=== PATIENT | female | born 1990 | race Caucasian/White ===

== ENCOUNTER 2022-06-24 15:44 | Outpatient (CLI) | payer BC, SELFPAY ==
[2022-06-24 13:50] LABS: Albumin* 4.5 g/dL (3.3-5.0)
[2022-06-24 13:51] LABS: Chloride* 106 mmol/L (96-114); Potassium* 4.5 mmol/L (3.6-5.1); Sodium* 140 mmol/L (135-149)
[2022-06-24 13:53] LABS: Aspartate Amino Transferase* 21 U/L (12-35); Bilirubin Total* 0.6 mg/dL (0.1-1.5); Carbon Dioxide* 26 mmol/L (20-32); Cholesterol* 191 mg/dL (90-199); Creatinine* 0.5 mg/dL (0.5-1.5); Estimated Glomerular Filt Rate 126 ml/min; Total Protein* 7.7 g/dL (6.0-8.3)
[2022-06-24 13:54] LABS: Alanine Aminotransferase* 24 U/L (4-35); Alkaline Phosphatase* 59 U/L (40-150); Blood Urea Nitrogen* 13 mg/dL (5-24); Calcium* 9.2 mg/dL (8.4-10.6); Glucose* 93 mg/dL (60-115); HDL Cholesterol* 59 mg/dL (>=50); LDL Cholesterol Calculated 108 mg/dL (<100); Triglycerides* 118 mg/dL (40-149)
[2022-06-24 14:11] LABS: Vitamin D 25 Hydroxy* 29 ng/mL (30-80)
[2022-06-24 14:25] LABS: TSH With Reflex to FT4* 0.354 uIU/mL (0.270-4.200)
== END 2022-06-24 15:45 | disposition home or self-care (01) ==
PROVIDERS: PCP Physician Assistant; Visit Provider Nurse Practitioner Family
DX: Z79.899 Other long term (current) drug therapy (principal)
CPT/HCPCS: 80053; 80061; 82306; 84443

== ENCOUNTER 2023-01-17 20:39 | Day surgery (SDC) | payer BC, SELFPAY ==
[2023-01-17] VITALS (11 sets, daily range): BP systolic 119–145; BP diastolic 45–84; PULSE 56–77; RESP 16; TEMP 36.7–36.9; O2SAT 95–98; BMI 34.0
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
--- NOTE | 2023-01-17 21:11 | CRLHL7_ITS ---
For Patients: As a result of the Century Cures Act, medical imaging exams and procedure reports are released immediately into your electronic medical record. You may view this report before your referring provider. If you have questions, please contact your health care provider. INDICATION: Right upper quadrant abdomen pain. TECHNIQUE: Ultrasound abdomen limited. Sonographic images of the right upper quadrant were obtained using arroyo-scale and color Doppler images. COMPARISON: None. FINDINGS: Liver: Normal in size. Mild diffuse hepatic steatosis. No suspicious masses. No intrahepatic biliary dilatation. Portal vein is patent with blood flow toward the liver. Gallbladder: Dependent shadowing cholelithiasis with a non-mobile stone in the gallbladder neck. Normal wall thickness. No pericholecystic fluid. No sonographic Kim`s sign, however the patient was given analgesic pain medication prior to the examination. Common bile duct: 4 mm. Pancreas: Unremarkable. Right kidney: Normal in size. Normal echotexture and cortex. No suspicious masses, stones, or hydronephrosis. Vasculature: Proximal abdominal aorta and IVC are unremarkable. IMPRESSION: Cholelithiasis without other sonographic evidence of acute cholecystitis. Dictated by Akash Trimble MD @ 01/17/2023 11:03:45 PM (Electronically Signed)
[2023-01-17 21:27] LABS: Basophils Absolute Auto 0.03 K/uL (0.00-0.30); Basophils Percent Auto 0.4 % (0.0-3.0); Eosinophils Percent Auto 2.8 % (0.0-7.0); Hemoglobin* 12.2 gm/dL (12.0-16.0); Immature Granulocytes Abs Auto 0.01 K/uL (0.00-0.30); Immature Granulocytes Pct Auto 0.1 %; Lymphocytes Absolute Auto 2.04 K/uL (0.90-2.90); Lymphocytes Percent Auto 28.1 % (20-44); Mean Corpuscular HGB Conc 33 gm/dL (32-36); Mean Corpuscular Hemoglobin 29 pg (26-34); Mean Corpuscular Volume 89 fL (80-100); Monocytes Percent Auto 4.5 % (0.0-11.0); Neutrophils Absolute Auto 4.65 K/uL (1.7-7.0); Neutrophils Percent Auto 64.1 % (42.0-72.0); Platelet Count* 220 K/uL (140-440); RDW Coefficient of Variation % 13.1 % (11.5-15.5); Red Blood Count 4.18 m/uL (4.00-5.20); White Blood Count* 7.26 K/uL (4.50-11.00)
[2023-01-17 21:28] LABS: Slide Review Reflex No
[2023-01-17] MEDS: MORPHINE 4 MG/ML INJ IVP (21:28)
[2023-01-17] MEDS: 0.9 % SODIUM CHLORIDE 1000 ml 1,000 ML IV (21:28)
[2023-01-17] MEDS: KETOROLAC 30 MG/ML inj IVP (21:28)
[2023-01-17 21:33] LABS: Appearance Urine Clear (Clear); Bilirubin Urine Negative (Negative); Blood Urine Trace-intact (Negative); Color Urine Yellow (Yellow); Glucose Urine Negative (Negative); Ketones Urine Negative (Negative); Leukocyte Esterase Urine Negative (Negative); Nitrite Urine Negative (Negative); Protein Urine Negative (Negative); Urobilinogen Urine 0.2 (0.2-1.0); pH Urine 5.5 (5.0-8.5)
[2023-01-17 21:41] LABS: RBC Urine 0-2 (0-2); WBC Urine 0-2 (0-5)
[2023-01-17 21:42] LABS: Albumin* 4.6 g/dL (3.3-5.0); Chloride* 105 mmol/L (96-114)
[2023-01-17 21:43] LABS: Potassium* 3.7 mmol/L (3.6-5.1); Sodium* 140 mmol/L (135-149)
[2023-01-17 21:45] LABS: Creatinine* 0.5 mg/dL (0.5-1.5); Estimated Glomerular Filt Rate 125 ml/min
[2023-01-17 21:46] LABS: Alanine Aminotransferase* 27 U/L (4-35); Alkaline Phosphatase* 60 U/L (40-150); Anion Gap 10 mEq/L (7-15); Aspartate Amino Transferase* 26 U/L (12-35); Bilirubin Direct* 0.1 mg/dL (0.0-0.5); Bilirubin Total* 0.3 mg/dL (0.1-1.5); Blood Urea Nitrogen* 9 mg/dL (5-24); Calcium* 9.7 mg/dL (8.4-10.6); Carbon Dioxide* 25 mmol/L (20-32); Glucose* 85 mg/dL (60-115); Lipase* 122 U/L (23-300)
[2023-01-17 21:48] LABS: C Reactive Protein* 0.6 mg/dL (0.5-1.0)
[2023-01-17 21:55] LABS: HCG Qualitative Serum* Negative (Negative)
[2023-01-17 22:13] LABS: Total Protein* 7.6 g/dL (6.0-8.3)
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
[2023-01-18] VITALS (23 sets, daily range): BP systolic 114–142; BP diastolic 67–91; PULSE 54–88; RESP 16–22; TEMP 36.1–37; O2SAT 90–99; BMI 36.3
--- NOTE | 2023-01-18 00:03 | ED.NURSE ---
report given to med/tree surgeon helper. pt. transferred via wheelchair to room 262.
[2023-01-18] MEDS: 0.9 % SODIUM CHLORIDE 1000 ml 1,000 ML 125 ML IV ×2 (01:39→08:36)
[2023-01-18] MEDS: SODIUM CHLORIDE 0.9 % (FLUSH) 10 ML SYRINGE 5 ML IVF (01:42)
--- NOTE | 2023-01-18 05:11 | PC.NURSE ---
Shift note: Pt was alert and oriented at the time of admission. Brought in on a wheelchair with complaints of abdominal pain, nausea and diarrhea which started 3 days ago. The above symptoms subsidized before pt was sent from ED. No nausea, diarrhea and pain level was at zero on admission and remained so throughout the shift. However, pt confirmed mild abd tenderness in all 4 quadrants except left upper quadrant. Pt was reviewed through telehealth by Dr. Jordan. NPO status maintained for possible surgery today. Except heart rate which was 54, all other vital signs were stable. Pt has had adequate and uninterrupted sleep except when there was the need for assessment.
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
[2023-01-18] MEDS: ACETAMINOPHEN 325 MG TABLET PO (07:19)
[2023-01-18] MEDS: MORPHINE 4 MG/ML INJ IVP (10:25)
[2023-01-18] MEDS: BUPIVACAINE 0.25% 30 ML INJECTION (14:45)
[2023-01-18] MEDS: LACTATED RINGERS 1000 ML 1,000 ML 35 ML IV (14:58)
--- NOTE | 2023-01-18 15:03 | W.ANESCHARGE ---
Anesthesia Charges Start Date/Time Anesthesia Start Date: 01/18/23 Anesthesia Start Time: 13:48 Stop Date/Time Anesthesia Stop Date: 01/18/23 Anesthesia Stop Time: 15:04
--- NOTE | 2023-01-18 15:06 | W.ANESCHARGE ---
Anesthesia Charges Start Date/Time Anesthesia Start Date: 01/18/23 Anesthesia Start Time: 13:48 Stop Date/Time Anesthesia Stop Date: 01/18/23 Anesthesia Stop Time: 15:04
--- NOTE | 2023-01-18 15:08 | PM.GSPRC ---
Operative Note Pre-op diagnosis: Cholelithiasis with likely acute cholecystitis Post-op diagnosis: Same Type of Procedure: Laparoscopic cholecystectomy Indications: The patient is a 33-year-old female with a history of several weeks of nausea. Yesterday she developed worsening nausea and severe right upper quadrant pain. She came in to be seen and was found to have gallstones. Liver tests as well as white blood cell count were normal, however because of the persistent pain it was felt she would benefit from cholecystectomy. Procedure Description: After discussing the risks and benefits of the procedure, the patient signed informed consent.? The operative site was marked and the patient was brought to the operating room and placed on the operating table in supine position.? Care was taken to pad the patient's pressure points.?? The patient was then intubated by anesthesia.?? The operative site was then prepped and draped in the usual sterile fashion.? A time-out was then performed. Entrance to the abdomen was gained via a 5 mm Visiport in the left upper quadrant. The abdomen was insufflated and briefly surveyed for signs of injury. There was none. A 10 mm umbilical port was placed. There were adhesions from the omentum to the falciform ligament. These were filmy in nature, however they were divided sharply with a scissor to facilitate the procedure. Two working ports were then placed along the right costal margin, all under direct vision. The patient was then placed in reverse Trendelenburg position with the right side up. The gallbladder fundus was grasped and retracted cephalad. It was noted to be distended. The infundibulum was grasped. A combination of hook cautery and blunt dissection was used to carefully dissect out the cystic duct and artery until they could clearly be seen entering the gallbladder without any intervening structures. The gallbladder was dissected off the cystic plate to achieve the critical view. Once this was achieved the cystic duct and artery were each clipped with 2 clips proximally and 1 clip distally and transected with the scissors. The gallbladder was then taken off of the liver bed and removed from the abdomen using an Endo-Catch bag. The gallbladder bed was surveyed for hemostasis which appeared adequate. The remaining ports were then removed and the abdomen desufflated. The umbilical port fascia was closed with 0 Vicryl. The skin was closed with absorbable subcuticular suture. Instrument sponge and needle counts were correct at the end of the case. The patient was then woken and transferred to the PACU in stable condition. The patient was then woken and transported to the recovery area in stable condition. ? The patient tolerated the procedure well. Findings: Distended gallbladder. Anesthesia: GETA Surgeon: Mily Sands MD Estimated blood loss (mL): 5 Specimen: Gallbladder Condition: stable Disposition: PACU Date of procedure: 01/18/23
[2023-01-18] MEDS: HYDROmorphone 0.5 mg/0.5 ml inj IVP (15:22)
[2023-01-18] MEDS: fentaNYL 100 MCG/2 ML inj 50 MCG IVP (15:35)
--- NOTE | 2023-01-18 15:47 | SUR.PHASEI ---
into pacu with 800cc lr. infused 90cc lr in phase 1
[2023-01-18] MEDS: HYDROCODONE-ACETAMIN 5-325 MG 1 TAB PO (17:07)
--- NOTE | 2023-01-18 18:39 | PC.NURSE ---
Pt alert and oriented. Pt independent in room. Pt has had pain ranging from 0-7; see EMAR for intervention. Pt went to surgery at 1345; Pt returned to floor at 16. VSS. Pt up to bathroom.When sleeping Pt?s saturations would drop to high 80?s; one-half Liter placed briefly. Pt ?s has four lap sites with steri strips. Two steri strip sites were bloody; Dr. Sands assessed; reinforced with Band-Aids per surgeon. Pt SBA upon first time ambulating after surgery; Pt tolerated well. Pt to discharge later tonight. Pt up walking halls x 1. Pt is trying regular diet; if tolerating well will discharge shortly.?
--- NOTE | 2023-01-18 22:50 | PC.NURSE ---
Pt alert and oriented x3. Afebrile. Pt reports 5/10 pain in abdomen, pain medications offered pt refused. Pt has 4 lap sites that are Intact with small amount of dried blood drainage. Pt is up SBA walking in [place], voiding, passing gas, and tolerating a regular diet. Pt's IV was taken out at discharge with catheter intact. Written and verbal discharge education given to pt and family member, verbalized understanding. Pt left via wheelchair with family member at side. pt left around 1999.
== END 2023-01-18 20:00 | disposition home or self-care (01) ==
LOC: ED 23:49 → MEDSURG 01-18 08:31 → SS 01-18 15:04 → MEDSURG 01-18 15:05
PROVIDERS: Emergency Provider Family Medicine; Visit Provider Surgery
PROC: 0FT44ZZ Resection of Gallbladder, Percutaneous Endoscopic Approach (ICD-10-PCS; CPT 47562; principal; 2023-01-18 12:15)
DX: K80.00 Calculus of gallbladder with acute cholecystitis without obstruction (principal)
CPT/HCPCS: 47562; 00790; 36415; 76705; 80048; 80076; 81001; 83690; 84703; 85025; 86140; 88304; 94761; 99284; A9270; J0330; J0665; J1100; J1170; J1200; J1885; J2250; J2270; J2405; J2704; J3010; J7030; J7120

== ENCOUNTER 2023-03-25 03:34 | Emergency (ER) | payer BC, SELFPAY ==
[2023-03-25 03:42] VITALS: BP 132/77; PULSE 69; RESP 20; TEMP 37.3; O2SAT 95
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
--- NOTE | 2023-03-25 04:15 | CRLHL7_ITS ---
For Patients: As a result of the Century Cures Act, medical imaging exams and procedure reports are released immediately into your electronic medical record. You may view this report before your referring provider. If you have questions, please contact your health care provider. INDICATION: 2 weeks of cough TECHNIQUE: Chest 1 views. COMPARISON: None. FINDINGS: Cardiovascular and mediastinum: Heart size and vasculature are normal in caliber and appearance. Lungs and pleural spaces: Subtle patchy opacity at the right medial lung base, concerning for pneumonia. No sign of pleural effusion. No pneumothorax. Bones and soft tissues: No significant findings. IMPRESSION: Subtle patchy opacity at the right medial lung base, concerning for pneumonia. Recommend follow-up chest radiographs in 4-6 weeks to document resolution. Dictated by Lai Corbin MD @ 03/25/2023 5:09:54 AM (Electronically Signed)
[2023-03-25] MEDS: 0.9 % SODIUM CHLORIDE 1000 ml 1,000 ML IV (04:28)
[2023-03-25] MEDS: KETOROLAC 30 MG/ML inj 15 MG IVP (04:28)
[2023-03-25 05:04] LABS: PCR FLU A Negative PCR FLU A (Negative); PCR FLU B Negative PCR FLU B (Negative); PCR RSV Negative PCR RSV (Negative)
[2023-03-25 05:06] LABS: SARS PCR* Negative SARS-CoV-2 (Negative)
--- NOTE | 2023-03-25 06:00 | ED.NURSE ---
patient reports feeling slightly better
[2023-03-25] MEDS: OLANZapine 5 MG TAB.RAPDIS 10 MG PO (07:12)
--- NOTE | 2023-03-25 07:15 | ED.NURSE ---
RN spoke with MD regarding patients statements about feeling passively suicidal and daydreaming about how she would do it. MD Olmos stated that he spoke with the patient and she stated to him that she feels like her headache made her feel more suicidal. stated that he doesnt think that the patient needs a DEC assessment and that she can go home without mental health evaluation.
[2023-03-25 07:42] VITALS: BP 119/75; PULSE 71; RESP 18; TEMP 36.6; O2SAT 96
== END 2023-03-25 07:48 | disposition home or self-care (01) ==
PROVIDERS: Emergency Provider Family Medicine
DX: R51.9 Headache, unspecified (principal); F43.10 Post-traumatic stress disorder, unspecified; J18.9 Pneumonia, unspecified organism
CPT/HCPCS: 71045; 87631; 96374; 99284; A9270; J1885; J7030